=== PATIENT | female | born 1960 | race Caucasian/White ===

== ENCOUNTER 2019-02-16 10:17 | Day surgery (SDC) | payer MEDICARE ==
[~2019-02-16] VITALS: Ht 180.3 cm; Wt 97.3 kg
[2019-02-16 10:39] LABS: BASOPHILS 0.1 % (0-2); EOSINOPHILS 0.8 % (0-7); HEMATOCRIT 43.8 % (36.0-48.0); HEMOGLOBIN 14.7 g/dL (12-16); IMMATURE GRANULOCYTES 0.1 % (0-5); MCH 30.5 pg (26.0-34.0); MCHC 33.6 g/dL (31.0-37.0); MCV 90.9 fL (80.0-100.0); MEAN PLATELET VOLUME 10.2 fL (7.4-10.4); MONOCYTES 3.1 % (2-11); NEUTROPHILS 68.9 % (40-80); PLATELET COUNT 238 10x3/uL (130-400); RBC 4.82 10x6/uL (4.00-5.40); RDW 13.8 % (11.5-14.5); WBC 7.7 10x3/uL (4.8-10.8)
[2019-02-16 10:40] LABS: ANION GAP 11.5 mmol/L (8-16); CALCIUM 8.8 mg/dL (8.5-10.1); CARBON DIOXIDE 27.4 mmol/L (21.0-32.0); CREATININE - SERUM 0.9 mg/dL (0.6-1.3); POTASSIUM - SERUM 3.9 mmol/L (3.5-5.1)
[2019-02-16] MEDS ORDERED: XANAX1 MG PO (11:27)
[2019-02-16] MEDS ORDERED: HYDROCODON-ACE1 EA10 PO (11:27)
[2019-02-16] MEDS ORDERED: PROPRANOLOL HCL20 MG PO (11:27)
[2019-02-16] MEDS ORDERED: TENORMIN25 MG PO (11:28)
[2019-02-16] MEDS ORDERED: PROTONIX40 MG PO (11:28)
[2019-02-16] MEDS ORDERED: PAMELOR 25 MG C25 MG PO (11:28)
[2019-02-16] MEDS ORDERED: TOPAMAX50 MG PO (11:28)
[2019-02-16] MEDS ORDERED: PROZAC20 MG PO (11:29)
[2019-02-16 11:36] VITALS: BP 142/73; Ht 180.3 cm; Wt 97.3 kg
--- NOTE | 2019-02-17 17:14 | OP ---
PATIENT NAME: BROCK MUNROE MEDICAL RECORD: [id number] :64 LOCATION:D.OPS ADMISSION DATE: SURGEON: JULIAN MENDOZA DO DATE OF OPERATION: 02/16/2019 PROCEDURE: Colonoscopy with polypectomy. INDICATION FOR PROCEDURE: Screening colonoscopy with a history of colon polyps. The patient's last procedure was in September of 2007. SCOPE: Olympus video pediatric colonoscope. MEDICATIONS: Propofol 450 mg IV per anesthesia. ESTIMATED BLOOD LOSS: Minimal. COMPLICATIONS: None. FINDINGS: Informed consent was given. The patient was made comfortable with the above medication. After reaching an adequate level of sedation by slow IV push, the patient was placed on her left side. The endoscope was advanced under direct visualization through the rectum to the cecum, confirmed by the presence of appendiceal orifice and ileocecal valve. The endoscope was slowly withdrawn and mucosa was carefully examined. The prep quality was good. There was a single benign-appearing sessile polyp, which was diminutive. It was located in the sigmoid colon. It was removed using a hot forceps. There was evidence of diverticulosis involving the sigmoid colon. This was of moderate severity. There was no evidence of diverticulitis. Retroflexion was performed in the rectum with a normal-appearing rectal wall. The endoscope was withdrawn from the patient. The patient tolerated the procedure well and there were no complications. IMPRESSIONS: 1. Single sigmoid polyp, removed with hot forceps. 2. Diverticulosis. PLAN AND RECOMMENDATIONS: 1. Discharge home when recovery parameters are met. 2. Follow up biopsy specimen results. 3. High-fiber diet. 4. Continue current medications. 5. Recall colonoscopy in 5 years. TRANSINT:[id number] Voice Confirmation ID: [id number] DOCUMENT ID: [id number] JULIAN MENDOZA DO at 1714 CC: [id number] DICTATION DATE: 02/16/19 1306 [employer] TE[employer]ER: 02/16/192018 [facility] 02/16/[address] [id number]
== END 2019-02-16 14:10 | disposition home or self-care (01) ==
LOC: D.OPS 10:17
PROVIDERS: Anesthesiology; ATTEND Internal Medicine Gastroenterology
DX: Z12.11 Encounter for screening for malignant neoplasm of colon (principal); K63.5 Polyp of colon; K57.30 Diverticulosis of large intestine without perforation or abscess without bleeding; Z86.010 Personal history of colon polyps; Z01.812 Encounter for preprocedural laboratory examination